=== PATIENT | female | born 1985 | race African-American/Black ===

== ENCOUNTER 2017-03-10 18:18 | Emergency (ER) | payer OTHER ==
--- NOTE | 2017-03-10 18:38 | PDOC ---
Rapid Medical Evaluation Time Seen by Provider: 03/10/17 18:32 Medical Evaluation: Allergies Allergy/AdvReac Type Severity Reaction Status Date / Time No Known Allergies Allergy Verified 06/27/14 10:22 03/10/17 18:36 Pt with c/o: vag bleding since last thursday, left suprapubic pain Pt on brief exam: tachy, bp wnl Pt ordered for: type and screen, cbc, comp, ua, upreg Pt to proceed to the ED Discharge Disposition - Diagnosis Episode of heavy vaginal bleeding - Referrals - Patient Instructions - Post Discharge Activity
[2017-03-10 18:41] VITALS: BP 107/65; PULSE 104; TEMP 98.5; BMI 34.0
[2017-03-10 19:00] LABS: BASO % 0.9 % (0-2.0); EOS % 2.8 % (0-4.5); HEMATOCRIT 34.3 % (32.4-45.2); HEMOGLOBIN 11.3 GM/dL (10.7-15.3); LYMPH % 35.6 % (8-40); MCH 25.3 pg (25.7-33.7); MCHC 32.8 g/dl (32.0-36.0); MEAN CELL VOLUME 77.1 fl (80-96); MEAN PLT VOLUME 8.4 fl (7.5-11.1); MONO % 8.7 % (3.8-10.2); PLATELET COUNT 331 K/MM3 (134-434); RBC 4.45 M/mm3 (3.60-5.2); RDW 15.1 % (11.6-15.6); WHITE BLOOD COUNT 5.7 K/mm3 (4.0-10.0)
--- NOTE | 2017-03-10 19:06 | PDOC ---
History of Present Illness - General Chief Complaint: Vaginal Bleeding Stated Complaint: VAGINAL BLEEDING Time Seen by Provider: 03/10/17 18:32 - History of Present Illness Initial Comments: 31 year old female [id number] presenting with vaginal bleeding for the past 9 days with left lower back pain radiating to the front in the setting of amenorrhea for the past two months and negative home tests. She is not on OCPs at home. LMP was 11/02/2016 and she has missed the subsequent few menstrual cycles until this month where she has multiple episodes of vaginal bleeding the longest period of which she is presenting for. States that she had sudden onset vaginal bleeding last Thursday and has been though a copious amount of pads since. There is no blood in her urine but she continues to soak through her pads and shorts. Her last pap smear was 1.5 years prior and negative. She has had some decreased appetite 2/2 nausea. Denies fevers, chills , vomiting, diarrhea, constipation, chest pain ,SOB, syncope, blood from any orifice besides her vagina. She doesn't recall her ObyGyn's name but [facility]. 03/10/17 19:11 Past History - Past Medical History Allergies/Adverse Reactions: Allergies Allergy/AdvReac Type Severity Reaction Status Date / Time No Known Allergies Allergy Verified 03/10/17 18:37 Home Medications: Ambulatory Orders Vit 108/Iron/Folic AC [ One Tablet] 1 each PO DAILY 03/22/14 Acetaminophen [Tylenol .Regular Strength -] 325 mg PO Q4H PRN #2 tablet Ibuprofen [Motrin -] 200 mg PO Q4H PRN #3 tablet 09/06/14 Asthma: No Cancer: No Cardiac Disorders: No CVA: No COPD: No Diabetes: No HTN: No Seizures: No Thyroid Disease: No - Reproductive History (#): 2 Para: 0 Therapeutic (s) & number: No Spontaneous : 0 - Immunization History Immunization Up to Date: Yes - Suicide/Smoking/Psychosocial Hx Smoking Status: No Smoking History: Never smoked Have you smoked in the past 12 months: No Number of Cigarettes Smoked Daily: 0 Information on smoking cessation initiated: No Hx Alcohol Use: No Drug/Substance Use Hx: No Substance Use Type: None Hx Substance Use Treatment: No Review of Systems - Review of Systems Constitutional: No: Chills, Diaphoresis, Fever HEENTM: No: Blurred Vision Respiratory: No: Cough, Shortness of Breath, Wheezing Cardiac (ROS): No: Irregular Heart Rate, Palpitations, Syncope ABD/GI: Yes: Nausea, Poor Appetite. No: Constipated, Diarrhea, Vomiting : Yes: Other (vaginal bleeding). No: Burning, Dysuria, Discharge, Hematuria, Incontinence, Urgency Integumentary: No: Bruising, Change in Color, Flushing, Lesions Neurological: No: Headache, Numbness *Physical Exam - Vital Signs Last Vital Signs Temp Pulse Resp BP Pulse Ox 98.5 F 104 H 16 107/65 99 03/10/17 18:37 03/10/17 18:37 03/10/17 18:37 03/10/17 18:37 03/10/17 18:37 - Physical Exam General Appearance: Yes: Nourished, Appropriately Dressed. No: Apparent Distress HEENT: positive: EOMI, SHAWN, Normal ENT Inspection, Normal Voice Neck: positive: Trachea midline, Normal Thyroid, Supple. negative: Tender, Rigid Respiratory/Chest: positive: Lungs Clear, Normal Breath Sounds. negative: Chest Tender, Respiratory Distress, Accessory Muscle Use Cardiovascular: positive: Regular Rhythm, Tachycardia. negative: Regular Rate Female Pelvic Exam: positive: normal external exam, normal adnexa, adnexal tenderness (left sided adnexal tenderness), vaginal bleeding. negative: cervical os closed (1.5- 2 cm dilated cervix without products in the OS.) Gastrointestinal/Abdominal: positive: Normal Bowel Sounds, Flat, Soft. negative : Tender, Increased Bowel Sounds Musculoskeletal: positive: Normal Inspection Extremity: positive: Normal Capillary Refill, Normal Inspection, Normal Range of Motion. negative: Tender Integumentary: positive: Normal Color, Dry, Warm Neurologic: positive: Fully Oriented, Alert, Normal Mood/Affect, Normal Response , Motor Strength 5/5 ED Treatment Course - LABORATORY CBC & Chemistry Diagram: 03/10/17 18:40 03/10/17 18:40 - ADDITIONAL ORDERS Additional order review: 03/10/17 18:40 RBC 4.45 MCV 77.1 L MCHC 32.8 RDW 15.1 MPV 8.4 Neutrophils % 52.0 D Lymphocytes % 35.6 D Monocytes % 8.7 Eosinophils % 2.8 Basophils % 0.9 Medical Decision Making - Medical Decision Making 31 year old female [id number] presenting with negative home tests a few months of amenorrhea followed by recent multiple episodes of vaginal bleeding. Pap smear 1.5 years prior was negative. Cervix appeared open with thick material/ clots in vaginal vault so was originally concerned for incomplete , however, patient's UPreg was negative so more likely fibroids vs. hemorrhagic adnexal mass/ ovarian cyst. Will get transvaginal US. Also a possibility is a kidney stone given quality of pain but unlikely given amount of non-urinary vaginal bleeding. Will re-examine after transvaginal. 03/10/17 20:44 TVUS did not demonstrate myometrial pathology, or right ovarian pathology. However, it was unable to visualize the left ovary. UA negative for infection. Given she is not , she does not have a large fibroid, and the rest of her labs are not demonstrating infection, patient is safe fro discharge. Will send patient home with ObyGyn follow up and return precautions. 03/10/17 21:34 *DC/Admit/Observation/Transfer Diagnosis at time of Disposition: Episode of heavy vaginal bleeding - Discharge Dispostion Disposition: HOME Condition at time of disposition: Improved Admit: No - Referrals - Patient Instructions Printed Discharge Instructions: DI for Vaginal Bleeding Additional Instructions: YOu are not , you do not have an infecton in your urinary tract, and you do not have any fibroids. Our ultrasound could see your right ovary (normal ) but could not see your let ovary. Please follow up with your [facility] and bring your paperwork/ labwork with you. Please return to the ED if you have further significant bleeding that causes lightheadedness, sensation of passing out, or seems abnormally uncontrollable to you. Also please return if you have severe pelvic pain, fever,s chills, or uncontrollable nausea/ vomiting. - Post Discharge Activity
[2017-03-10] MEDS ORDERED: SODIUM CHLORIDE 0.9% 1000 ML INFUS.BAG IV ONE (19:08)
[2017-03-10 19:41] LABS: ALBUMIN 3.8 g/dl (3.4-5.0); ALK PHOS 91 U/L (45-117); ANION GAP 6 (8-16); BILIRUBIN,TOTAL 0.3 mg/dL (0.2-1.0); BLOOD UREA NITROGEN 6 mg/dL (7-18); CALCIUM 8.5 mg/dL (8.5-10.1); CHLORIDE 101 mmol/L (98-107); CO2 30 mmol/L (21-32); CREATININE 0.8 mg/dL (0.55-1.02); GLUCOSE,RANDOM 98 mg/dL (74-106); POTASSIUM 3.6 mmol/L (3.5-5.1); SGOT/AST 13 U/L (15-37); SGPT/ALT 18 U/L (12-78); SODIUM 137 mmol/L (136-145); TOT PROT 7.4 g/dl (6.4-8.2)
[2017-03-10 20:29] LABS: HCG,QUALITATIVE URINE NEGATIVE
[2017-03-10 20:32] LABS: URINE APPEARANCE CLEAR; URINE BILIRUBIN NEGATIVE (NEGATIVE); URINE BLOOD 3+ (NEGATIVE); URINE COLOR STRAW; URINE GLUCOSE (UA) NEGATIVE (NEGATIVE); URINE KETONE NEGATIVE (NEGATIVE); URINE LEUK ESTERASE NEGATIVE (NEGATIVE); URINE NITRITE NEGATIVE (NEGATIVE); URINE PROTEIN NEGATIVE (NEGATIVE); URINE UROBILINOGEN NEGATIVE mg/dL (0.2-1.0)
--- NOTE | 2017-03-10 20:38 | PDOC ---
Attending Attestation - Resident Resident Name: KoffiKelvinrinachris - ED Attending Attestation I have performed the following: I have examined & evaluated the patient, The case was reviewed & discussed with the resident, I agree w/resident's findings & plan, Exceptions are as noted - HPI HPI: 03/10/17 20:37 31 yo female p/w intermittent vaginal bleeding for 3 weeks,negative home preg test - Physicial Exam PE: 03/10/17 20:38 wnwd 31 yo female in no distress head ncat neck uspple lungs cta b/l cvs [id number] abd no rebound,soft,no guarding pelvic moderate blood in vaginal vault,left adnexal pain ext no e/c/c neuro axox3,ambulatory - Medical Decision Making 03/10/17 20:41 plan preg,cbc,pelvic US
[2017-03-10 20:58] LABS: EPI CELLS RARE /HPF (FEW); URINE BACTERIA RARE /hpf (NONE SEEN)
--- NOTE | 2017-03-11 08:05 | EKG ---
Test Reason : Blood Pressure : / mmHG Vent. Rate : 080 BPM Atrial Rate : 080 BPM P-R Int : 150 ms QRS Dur : 072 ms QT Int : 376 ms P-R-T Axes : 060 049 036 degrees QTc Int : 433 ms NORMAL SINUS RHYTHM NORMAL ECG WHEN COMPARED WITH ECG OF 30-APR-2006 19:40, NO SIGNIFICANT CHANGE WAS FOUND Confirmed by CLAUDIA ALLRED MD ([id number]) on 03/11/2017 8:05:01 AM Referred By: Confirmed By:CLAUDIA ALLRED MD
== END 2017-03-10 22:17 | disposition home or self-care (01) ==
LOC: JER 18:18
DX: N93.8 Other specified abnormal uterine and vaginal bleeding (principal); N92.0 Excessive and frequent menstruation with regular cycle
CPT/HCPCS: 36415; 76830-TC; 80053; 81003; 81015; 84702; 84703; 85025; 86850; 86900; 86901; 87086; 93005; 93010; 99282-25

== ENCOUNTER 2020-02-27 17:59 | Inpatient (IN) | payer OTHER ==
[2020-02-27 18:20] VITALS: BMI 34.0
[2020-02-27] MEDS ORDERED: SODIUM CHLORIDE 1,000 ML IV STA (19:21)
[2020-02-27 20:02] LABS: BASO % 1.2 % (0-2.0); EOS % 1.7 % (0-4.5); HEMATOCRIT 25.1 % (32.4-45.2); HEMOGLOBIN 7.4 GM/dL (10.7-15.3); MCHC 29.6 g/dl (32.0-36.0); MEAN CELL VOLUME 56.9 fl (80-96); MEAN PLT VOLUME 8.9 fl (7.5-11.1); MONO % 7.5 % (3.8-10.2); NEUT % 62.6 % (42.8-82.8); PLATELET COUNT 595 K/MM3 (134-434); RBC 4.41 M/mm3 (3.60-5.2); RDW 20.7 % (11.6-15.6); WHITE BLOOD COUNT 5.5 K/mm3 (4.0-10.0)
[2020-02-27 20:07] LABS: EPI CELLS 7 /uL (0-25.1); HCG,QUALITATIVE URINE Negative; HYALINE CASTS 0 /uL (0-3.1); MCH 16.9 pg (25.7-33.7); PH,URINE 5.5 (5.0-8.0); URINE APPEARANCE CLEAR; URINE BACTERIA 115 /uL (0-1359); URINE BILIRUBIN NEGATIVE (NEGATIVE); URINE COLOR YELLOW; URINE GLUCOSE (UA) NEGATIVE (NEGATIVE); URINE KETONE NEGATIVE (NEGATIVE); URINE LEUK ESTERASE TRACE (NEGATIVE); URINE NITRITE NEGATIVE (NEGATIVE); URINE PROTEIN NEGATIVE (NEGATIVE); URINE RBC 5 /uL (0-23.9); URINE UROBILINOGEN 0.2 mg/dL (0.2-1.0); URINE WBC 16 /uL (0-25.8)
[2020-02-27 20:09] LABS: INR 1.12 (0.83-1.09); PROTHROMBIN TIME (PATIENT) 13.7 SEC (9.7-13.0)
[2020-02-27 20:40] LABS: CALCIUM 9.6 mg/dL (8.5-10.1)
[2020-02-27 20:41] LABS: ALBUMIN 4.1 g/dl (3.4-5.0)
[2020-02-27 20:43] LABS: BLOOD UREA NITROGEN 6.6 mg/dL (7-18)
[2020-02-27 20:44] LABS: CREATININE 0.7 mg/dL (0.55-1.3)
[2020-02-27 20:45] LABS: BILIRUBIN,TOTAL 0.4 mg/dL (0.2-1)
[2020-02-27 20:46] LABS: ANISOCYTOSIS 2+; TOT PROT 8.1 g/dl (6.4-8.2)
[2020-02-28 07:36] LABS: EOS % 1.5 % (0-4.5); HEMATOCRIT 24.9 % (32.4-45.2); HEMOGLOBIN 7.8 GM/dL (10.7-15.3); LYMPH % 27.2 % (8-40); MCHC 31.3 g/dl (32.0-36.0); MEAN PLT VOLUME 9.2 fl (7.5-11.1); MONO % 9.6 % (3.8-10.2); NEUT % 60.7 % (42.8-82.8); PLATELET COUNT 455 K/MM3 (134-434); RBC 4.15 M/mm3 (3.60-5.2); RDW 23.3 % (11.6-15.6); WHITE BLOOD COUNT 6.9 K/mm3 (4.0-10.0)
[2020-02-28 07:48] LABS: POTASSIUM 3.9 mmol/L (3.5-5.1)
[2020-02-28 07:54] LABS: CALCIUM 8.5 mg/dL (8.5-10.1)
[2020-02-28 07:55] LABS: ALBUMIN 3.2 g/dl (3.4-5.0); BLOOD UREA NITROGEN 6.9 mg/dL (7-18)
[2020-02-28 07:58] LABS: CREATININE 0.7 mg/dL (0.55-1.3)
[2020-02-28 07:59] LABS: BILIRUBIN,TOTAL 2.1 mg/dL (0.2-1); TOT PROT 6.8 g/dl (6.4-8.2)
[2020-02-28 08:09] LABS: IRON SERUM 312 ug/dL (50-175)
[2020-02-28 08:10] LABS: TOTAL IRON BINDING CAPACITY 461 ug/dL (250-450)
[2020-02-28 08:33] LABS: MCH 18.8 pg (25.7-33.7)
[2020-02-28] MEDS ORDERED: IRON SUCROSE INJECTION 200 MG in SODIUM CHLORIDE 90 ML IVPB ONE (10:00)
[2020-02-28] MEDS ORDERED: IRON SUCROSE INJECTION 500 MG in SODIUM CHLORIDE 225 ML IVPB ONE (10:00)
[2020-02-28] MEDS ORDERED: IRON SUCROSE INJECTION 300 MG in SODIUM CHLORIDE 235 ML IVPB ONE (13:00)
[2020-02-28 16:09] VITALS: BP 105/69; PULSE 81; TEMP 99.2
[2020-02-29] MEDS ORDERED: IRON SUCROSE INJECTION 500 MG in SODIUM CHLORIDE 225 ML IVPB ONE (10:00)
== END 2020-02-28 16:18 | disposition home or self-care (01) | DRG 663 ==
LOC: JER 17:59 → JERBED 20:21
PROVIDERS: ADMIT Internal Medicine; ATTEND Internal Medicine
PROC: 30233N1 Transfusion of Nonautologous Red Blood Cells into Peripheral Vein, Percutaneous Approach (ICD-10-PCS; principal; 2020-02-27)
DX: D50.9 Iron deficiency anemia, unspecified (principal); R55 Syncope and collapse; D57.3 Sickle-cell trait; E66.9 Obesity, unspecified; Z68.34 Body mass index [BMI] 34.0-34.9, adult; N92.0 Excessive and frequent menstruation with regular cycle
CPT/HCPCS: 36415; 36430; 71045-TC-FY; 80053; 81003; 82550; 82728; 83540; 83550; 83735; 84100; 84484; 84703; 85025; 85610; 86850; 86900; 86901; 86922; 93005; 93010; 93306-TC; 99285-25; C9803; J1756; P9058; U0003

== ENCOUNTER 2021-12-22 21:59 | Emergency (ER) | payer OTHER ==
[2021-12-22 22:11] VITALS: BP 103/65; PULSE 100; RESP 19; TEMP 100.4; BMI 35.9
[2021-12-22] MEDS ORDERED: IBUPROFEN 600 MG TABLET (FP) PO ONE (23:16)
[2021-12-22] MEDS ORDERED: ALBUTEROL SO4 2.5/IPRATROPIUM 0.5 INH SOL 3 ML VIAL.NEB. NEB ONE ×2 (23:16→23:21)
[2021-12-22] MEDS ORDERED: KETOROLAC TROMETHAMINE 30 MG/1 ML VIAL IM ONE (23:20)
[2021-12-22] MEDS ORDERED: DEXAMETHASONE SOD PHOSPHATE 10 MG/1 ML VIAL IM ONE (23:20)
[2021-12-22] MEDS ORDERED: KETOROLAC TROMETHAMINE 30 MG/1 ML VIAL ONE (23:21)
[2021-12-22] MEDS ORDERED: DEXAMETHASONE SOD PHOSPHATE 10 MG/1 ML VIAL ONE (23:21)
[2021-12-22 23:49] LABS: THROAT:GRP A STREP NOT DETECTED (NOTDETECTED)
== END 2021-12-23 00:11 | disposition home or self-care (01) ==
LOC: JER 21:59 → JERFT 21:59
DX: B34.9 Viral infection, unspecified (principal)
CPT/HCPCS: 0241U-QW; 87651; 99283-25; J1100

== ENCOUNTER 2022-03-24 09:38 | Emergency (ER) | payer SELFPAY ==
[2022-03-24 10:14] VITALS: BMI 35.6
[2022-03-24] MEDS ORDERED: ACETAMINOPHEN 1000 MG/100 ML BAG IVPB ONE (11:47)
[2022-03-24] MEDS ORDERED: SODIUM CHLORIDE 0.9% 500 ML INFUS.BAG IV ONE (11:47)
[2022-03-24] MEDS ORDERED: ONDANSETRON 4 MG/2 ML VIAL IVPUSH ONE (11:47)
[2022-03-24] MEDS ORDERED: ACETAMINOPHEN INJECTION 100 ML IVPB ONE (12:25)
[2022-03-24] MEDS ORDERED: ONDANSETRON 4 MG/2 ML VIAL ONE (12:25)
[2022-03-24 12:54] LABS: BASO % 0.4 % (0-2.0); HEMATOCRIT 27.5 % (32.4-45.2); HEMOGLOBIN 8.9 GM/dL (10.7-15.3); LYMPH % 7.8 % (8-40); MCH 22.2 pg (25.7-33.7); MCHC 32.3 g/dl (32.0-36.0); MEAN CELL VOLUME 68.8 fl (80-96); MEAN PLT VOLUME 8.3 fl (7.5-11.1); NEUT % 81.8 % (42.8-82.8); PLATELET COUNT 421 10^3/uL (134-434); RBC 3.99 M/mm3 (3.60-5.2); RDW 17.7 % (11.6-15.6)
[2022-03-24 13:24] LABS: CALCIUM 9.2 mg/dL (8.5-10.1)
[2022-03-24 13:25] LABS: BLOOD UREA NITROGEN 7.4 mg/dL (7-18)
[2022-03-24 14:17] VITALS: BP 104/60; PULSE 99; RESP 17; TEMP 99.8
== END 2022-03-24 14:45 | disposition home or self-care (01) ==
LOC: JER 09:38
PROC: 3E033GC Introduction of Other Therapeutic Substance into Peripheral Vein, Percutaneous Approach (ICD-10-PCS; principal; 2022-03-24)
DX: U07.1 COVID-19 (principal)
CPT/HCPCS: 0241U-QW; 36415; 80048; 85025; 99284-25

== ENCOUNTER 2023-11-16 22:55 | Emergency (ER) | payer BC ==
[2023-11-16 23:03] VITALS: BP 105/65; PULSE 91; RESP 18; TEMP 98.6; BMI 27.8
[2023-11-16] MEDS ORDERED: ACETAMINOPHEN INJECTION 100 ML ONE (23:56)
[2023-11-17] MEDS: SODIUM CHLORIDE 0.9% 500 ML INFUS.BAG IV ONE (00:01)
[2023-11-17] MEDS: ACETAMINOPHEN 1000 MG/100 ML BAG IVPB ONE (00:01)
[2023-11-17 00:06] LABS: EOS % 1.3 % (0-4.5); HEMATOCRIT 24.5 % (32.4-45.2); HEMOGLOBIN 7.5 GM/dL (10.7-15.3); LYMPH % 35.9 % (8-40); MCHC 30.6 g/dl (32.0-36.0); MEAN CELL VOLUME 56.6 fl (80-96); MEAN PLT VOLUME 8.1 fl (7.5-11.1); MONO % 8.1 % (3.8-10.2); NEUT % 53.7 % (42.8-82.8); PLATELET COUNT 410 10^3/uL (134-434); RBC 4.33 M/mm3 (3.60-5.2); RDW 20.2 % (11.6-15.6); WHITE BLOOD COUNT 5.2 K/mm3 (4.0-10.0)
[2023-11-17 00:23] LABS: INR 1.07 (0.83-1.09); MCH 17.3 pg (25.7-33.7); PROTHROMBIN TIME (PATIENT) 12.1 SEC (9.7-13.0)
[2023-11-17 00:25] LABS: POTASSIUM 3.9 mmol/L (3.5-5.1)
[2023-11-17 00:26] LABS: ACTIVATED PTT 34.2 SECONDS (25.2-36.5)
[2023-11-17 00:27] LABS: CALCIUM 9.3 mg/dL (8.5-10.1)
[2023-11-17 00:28] LABS: ALBUMIN 3.9 g/dl (3.4-5.0); BLOOD UREA NITROGEN 12.1 mg/dL (7-18)
[2023-11-17 00:31] LABS: CREATININE 0.8 mg/dL (0.55-1.3)
[2023-11-17 00:32] LABS: BILIRUBIN,TOTAL 0.4 mg/dL (0.2-1); TOT PROT 7.6 g/dl (6.4-8.2)
[2023-11-17 03:12] LABS: ANISOCYTOSIS 2+; MACROCYTOSIS 0; OVALOCYTE 1+; ROULEAU 1+
[2023-11-17 03:37] LABS: HIV INTERPRETATION NEGATIVE (NEGATIVE)
== END 2023-11-17 01:13 | disposition home or self-care (01) ==
LOC: JER 22:55
PROC: 3E033NZ Introduction of Analgesics, Hypnotics, Sedatives into Peripheral Vein, Percutaneous Approach (ICD-10-PCS; principal; 2023-11-17)
DX: R55 Syncope and collapse (principal); R42 Dizziness and giddiness; R06.02 Shortness of breath; R51.9 Headache, unspecified; Z20.822 Contact with and (suspected) exposure to COVID-19
CPT/HCPCS: 0241U-QW; 36415; 71045-TC-FY; 80053; 84484; 84703; 85025; 85610; 85730; 86803; 86850; 86900; 86901; 87389; 93005; 93010; 99285-25; J0131